=== PATIENT | male | born 1990 | race Caucasian/White ===

== ENCOUNTER 2017-01-15 10:08 | Emergency (ER) | payer OTHER ==
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
[~2017-01-15 10:08] MED LIST: BACTRIM DS TABL1 TA1 PO; CLARITIN10 M3 PO; DIFLUCAN PO; ERYTHROMYCIN O3.5 GM OS; NO MEDICATIONS; PREDNISONE PO; ROBITUSSIN100 MG/52 PO; TRAMADOL HCL50 M1 PO
== END 2017-01-15 12:34 | disposition home or self-care (01) ==
LOC: SED 10:08
DX: S29.012A Strain of muscle and tendon of back wall of thorax, initial encounter (principal); S39.012A Strain of muscle, fascia and tendon of lower back, initial encounter; F17.200 Nicotine dependence, unspecified, uncomplicated; Z88.1 Allergy status to other antibiotic agents; V86.59XA Driver of other special all-terrain or other off-road motor vehicle injured in nontraffic accident, initial encounter; Y92.410 Unspecified street and highway as the place of occurrence of the external cause
CPT/HCPCS: 71020; 72040; 72072; 72100; 99284